=== PATIENT | female | born 1955 | race Caucasian/White ===

== ENCOUNTER 2018-03-16 00:04 | Emergency (ER) | payer MEDICARE, OTHER ==
[~2018-03-16] VITALS: Ht 160 cm; Wt 68.0 kg
[~2018-03-16 00:04] MED LIST: CENTRUM SILVER1 EAC3 PO; CEPH500 PO; CETI5 PO; CHLO25 PO; CODACE30 PO; DOCU100 PO; DONE10 PO; HYDR1TAB94 PO; LATANOPROST2.5 ML OP; LOSA25 PO; MEMA10 PO; MULVITMIND PO; Milk Of Ma800 MG/5 M PO; OCCUVITE; Prozac40 MG PO; QUET25 PO; THIA100 PO; VENL150ER PO
[2018-03-16] MEDS ORDERED: BISA10S PR (00:28)
[2018-03-16] MEDS ORDERED: LORA.5 PO (00:29)
== END 2018-03-16 04:00 | disposition home or self-care (01) ==
LOC: ER 00:04
DX: S01.412A Laceration without foreign body of left cheek and temporomandibular area, initial encounter (principal); W26.8XXA Contact with other sharp object(s), not elsewhere classified, initial encounter; Z88.2 Allergy status to sulfonamides; Z88.8 Allergy status to other drugs, medicaments and biological substances; Z79.899 Other long term (current) drug therapy; Z79.2 Long term (current) use of antibiotics; F03.90 Unspecified dementia, unspecified severity, without behavioral disturbance, psychotic disturbance, mood disturbance, and anxiety; F17.210 Nicotine dependence, cigarettes, uncomplicated
CPT/HCPCS: 12013; 70450; 72125; 90471; 90714; 99284

== ENCOUNTER → 2019-01-15 | Outpatient (CLI) | payer MEDICARE, OTHER ==
[~2019-01-15] MED LIST changes: +BISA10S PR; +CVS DISPOSABLE399 ML PR; +GAVILAX17 GM PO; +LORA.5 PO; +TYLECOD3 PO
== END | disposition home or self-care (01) ==
LOC: LAB SHORT 19:57 → LAB 19:57
DX: N39.0 Urinary tract infection, site not specified (principal)
CPT/HCPCS: 87077; 87086; 87186

== ENCOUNTER → 2019-08-14 | Outpatient (CLI) | payer MEDICARE, OTHER ==
[2019-08-14 20:16] LABS: Anion Gap 7 mmol/L (6-16); Blood Urea Nitrogen 9 mg/dL (8-24); Bun/Creatinine Ratio 14.9 (12.0-20.0); CO2, Blood 27 mmol/L (21-32); Calcium, Blood 8.6 mg/dL (8.5-10.1); Chloride, Blood 106 mmol/L (98-108); Creatinine, Blood 0.61 mg/dL (0.40-1.00); Glomerular Filtration Rate >60 (60-); Glucose, Blood 100 mg/dL (70-99); Potassium, Blood 3.9 mmol/L (3.5-5.5); Sodium, Blood 140 mmol/L (136-145)
== END | disposition home or self-care (01) ==
LOC: LAB 18:02 → LAB SHORT 18:02
PROVIDERS: Hospitalist
DX: R33.9 Retention of urine, unspecified (principal)
CPT/HCPCS: 80048